=== PATIENT | female | born 1975 | race Caucasian/White ===

== ENCOUNTER 2018-09-16 00:12 | Emergency (ER) | payer OTHER, SELFPAY ==
--- OUTSIDE RECORDS SUMMARY | 2018-09-16 00:15 | XMS REPORT ---
:1975 Author Organization [facility] Address [address] [place] [address] Dr. [address] [place] [address] Care Team Providers Name Role Phone DR NAA RUIZ Unavailable Unavailable Problems This patient has no known problems. Allergies, Adverse Reactions, Alerts This patient has no known allergies or adverse reactions. Medications This patient has no known medications. Encounters Start End Encounter Admission Attending Care Care Encounter Date/Time Date/Time Type Type Clinicians Facility Department ID 2018-04-05 2018-04-05 Outpatient Deborah RUIZ [facility] [id number] 04:41:00 08:30:00 NAA 2017-10-11 2017-10-11 Outpatient Deborah RUIZ [facility] [id number] 05:44:00 11:43:00 NAA Results Test Description Test Time Test Comments Text Results Atomic Results Result Comments URINE MONOCLONALFB 2018-04-05 06:15:00 Test Item Value Reference Range Comments PREG UR (test code=PGU) NEGATIVE NEGATIVE URINE MONOCLONALFB2017-10-11 06:38:00 Test Item Value Reference Range Comments PREG UR (test code=PGU) NEGATIVE NEGATIVE
[2018-09-16 01:28] LABS: Absolute Lymphocytes (CBC) 4.4 K/uL (0.7-4.9); Absolute Monocytes 0.9 K/uL (0.1-1.3); Absolute Neutrophil 6.3 K/uL (1.8-8.0); Basophils % 0.6 % (0-1.3); Eosinophils % 2.1 % (0-4.4); Hematocrit 35.2 % (36.0-45.0); Lymphocytes % 36.7 % (15.3-44.8); MPV 8.2 fL (7.6-11.3); Monocytes % 7.5 % (3.3-12.3); RBC Red Blood Cell Count 5.07 M/uL (3.86-4.86)
[2018-09-16 01:31] LABS: Protime INR 0.97
[2018-09-16 01:48] LABS: ALT/SGPT 25 U/L (12-78); AST/SGOT 17 U/L (15-37); Albumin 3.4 g/dL (3.4-5.0); Alkaline Phosphatase 144 U/L (45-117); BUN Blood Urea Nitrogen 8 mg/dL (7-18); Bicarbonate 28 mmol/L (21-32); Bilirubin Direct < 0.1 mg/dL (0-0.2); Bilirubin Total 0.1 mg/dL (0.2-1.0); Glucose Level 144 mg/dL (74-106); Magnesium 2.2 mg/dL (1.8-2.4); NT PRO-BNP 8 pg/mL (<125); Potassium 4.1 mmol/L (3.5-5.1); Protein, Total 7.9 g/dL (6.4-8.2); Sodium Level 140 mmol/L (136-145); Troponin (Emerg Dept Use Only) < 0.02 ng/mL (0.0-0.045)
--- NOTE | 2018-09-16 02:20 | ER ---
Nurse's Notes [facility] Name: Enedina Hodge Age: 43 yrs Sex: Female : 1975 Arrival Date: 09/16/2018 Time: 00:19 Bed 20 Private MD: Diagnosis: Chest pain, unspecified Presentation: 09/16 00:38 Presenting complaint: Patient states: intermittent chest pains x 5 days and feels like tl2 heart "skips a beat". Pain goes through to back and radiates up neck. Denies nausea, vomiting, or shortness of breath. Reports headache. Transition of care: patient was not received from another setting of care. Onset of symptoms was September 11, 2018. Risk Assessment: Do you want to hurt yourself or someone else? Patient reports no desire to harm self or others. Initial Sepsis Screen: Does the patient meet any 2 criteria? No. Patient's initial sepsis screen is negative. Does the patient have a suspected source of infection? No. Patient's initial sepsis screen is negative. Care prior to arrival: None. 00:38 Method Of Arrival: Ambulatory tl2 00:38 Acuity: GATO 3 tl2 Triage Assessment: 00:41 General: Appears in no apparent distress. uncomfortable, Behavior is calm, cooperative, tl2 appropriate for age. Pain: Complains of pain in anterior aspect of left upper chest Pain radiates to left scapular area Pain currently is 0 out of 10 on a pain scale. at worst was 5 out of 10 on a pain scale. Aggravated by increased activity. Neuro: Level of Consciousness is awake, alert, obeys commands, Oriented to person, place, time, situation. Cardiovascular: Chest pain is described as mild, quality is sharp, is located in left chest wall episodes are intermittent. Cardiovascular: Patient's skin is warm and dry. Rhythm is sinus rhythm. Respiratory: Airway is patent Respiratory effort is even, unlabored, Respiratory pattern is regular, symmetrical, Denies shortness of breath. GI: No signs and/or symptoms were reported involving the gastrointestinal system. Patient currently denies nausea, vomiting. : No signs and/or symptoms were reported regarding the genitourinary system. Derm: Skin is pink, warm \\T\\ dry. Historical: - Allergies: 00:41 Codeine (Vomiting); tl2 00:41 Morphine (Vomiting); tl2 00:41 Tramadol HCl (Vomiting); tl2 00:41 Hydrocodone-Acetaminophen; tl2 00:41 skalaxin; tl2 - Home Meds: 00:41 Omeprazole Oral [Active]; tl2 - PMHx: 00:41 Gastric Reflux; stress induced hypertension; tl2 - PSHx: 00:41 right and left foot; tl2 - Immunization history:: Adult Immunizations up to date. - Social history:: Smoking status: Patient uses tobacco products, smokes one-half pack cigarettes per day. - Ebola Screening: : No symptoms or risks identified at this time. Screenin:44 Abuse screen: Denies threats or abuse. Nutritional screening: No deficits noted. tl2 Tuberculosis screening: No symptoms or risk factors identified. Fall Risk None identified. Assessment: 00:45 Pain: Pain began 5 days ago. tl2 01:28 Reassessment: Patient appears in no apparent distress at this time. Patient and/or tl2 family updated on plan of care and expected duration. Pain level reassessed. Patient is alert, oriented x 3, equal unlabored respirations, skin warm/dry/pink. awaiting lab results. 02:29 Reassessment: Patient appears in no apparent distress at this time. Patient and/or tl2 family updated on plan of care and expected duration. Pain level reassessed. Patient is alert, oriented x 3, equal unlabored respirations, skin warm/dry/pink. Patient states feeling better. 02:44 Reassessment: Patient appears in no apparent distress at this time. pt verbalized tl2 understanding of discharge instructions, and need for follow up. Vital Signs: 00:41 BP 127 / 65; Pulse 86; Resp 18; Temp 98(O); Pulse Ox 98% on R/A; Weight 90.72 kg; tl2 Height 5 ft. 5 in. (165.10 cm); Pain 0/10; 01:28 BP 118 / 92; Pulse 83; Resp 21; Pulse Ox 100% on R/A; tl2 02:29 BP 101 / 65; Pulse 83; Resp 20; Pulse Ox 97% on R/A; tl2 00:41 Body Mass Index 33.28 (90.72 kg, 165.10 cm) tl2 ED Course: 00:19 Patient arrived in ED. es 00:22 Hair Curtis PA is PHCP. jr8 00:22 Wei Garcia MD is Attending Physician. jr8 00:39 Triage completed. tl2 00:41 Arm band placed on right wrist. tl2 00:44 Patient has correct armband on for positive identification. Bed in low position. Call tl2 light in reach. Side rails up X 1. residential monitor on. Pulse ox on. NIBP on. 00:44 Patient maintains SpO2 saturation greater than 95% on room air. tl2 00:46 Zoey Sullivan, NELLY is Primary Nurse. tl2 01:09 X-ray completed. Portable x-ray completed in exam room. Patient tolerated procedure kw well. 01:09 XRAY Chest (1 view) In Process Unspecified. EDMS 01:19 Inserted saline lock: 20 gauge in right antecubital area, using aseptic technique. lt1 02:44 No provider procedures requiring assistance completed. IV discontinued, intact, tl2 bleeding controlled, No redness/swelling at site. Pressure dressing applied. Administered Medications: No medications were administered Outcome: 02:19 Discharge ordered by . jr8 02:44 Discharged to home ambulatory. tl2 02:44 Condition: stable 02:44 Discharge instructions given to patient, Instructed on discharge instructions, follow up and referral plans. Demonstrated understanding of instructions, follow-up care. 02:46 Patient left the ED. tl2 Signatures: Dispatcher [employer] Julieta Bauer Kimberlee kw Roszak, Josh, PA PA jr8 Zoey Sullivan RN RN tl2 Cassie Otero lt1
--- NOTE | 2018-09-16 02:20 | EDPHYS ---
Physician Documentation [facility] Name: Enedina Hodge Age: 43 yrs Sex: Female : 1975 Arrival Date: 09/16/2018 Time: 00:19 Bed 20 Private MD: ED Physician Wei Garcia HPI: 09/16 01:16 This 43 yrs old Female presents to ER via Ambulatory with complaints of Chest jr8 Pain. 01:16 The patient or guardian reports chest pain that is located primarily in the substernal jr8 area. Onset: gradually, 5 day(s) ago. The pain radiates to the left shoulder. Associated signs and symptoms: Pertinent positives: dizziness. The chest pain is described as sharp, squeezing, stabbing. Duration: The patient or guardian reports multiple episodes, that are intermittent, that wax and wane. Modifying factors: The symptoms are alleviated by rest, the symptoms are aggravated by emotionally stressful situations. Severity of pain: At its worst the pain was moderate in the emergency department the pain has resolved. The patient has experienced similar episodes in the past, several times. The patient has not recently seen a physician. Patient stated that she has longstanding history of chest pain on/off with exertion and from her heart skipping beats. Has seen cardiology in past and had multiple labs and diagnostics run. No VT or atherosclerotic changes then. Stated that it was from emotional response and stress. Came to ED today because she has never had this long of chest pain before . Historical: - Allergies: 00:41 Codeine (Vomiting); tl2 00:41 Morphine (Vomiting); tl2 00:41 Tramadol HCl (Vomiting); tl2 00:41 Hydrocodone-Acetaminophen; tl2 00:41 skalaxin; tl2 - Home Meds: 00:41 Omeprazole Oral [Active]; tl2 - PMHx: 00:41 Gastric Reflux; stress induced hypertension; tl2 - PSHx: 00:41 right and left foot; tl2 - Immunization history:: Adult Immunizations up to date. - Social history:: Smoking status: Patient uses tobacco products, smokes one-half pack cigarettes per day. - Ebola Screening: : No symptoms or risks identified at this time. ROS: 01:16 Eyes: Negative for injury, pain, redness, and discharge, ENT: Negative for injury, jr8 pain, and discharge, Neck: Negative for injury, pain, and swelling, Respiratory: Negative for shortness of breath, cough, wheezing, and pleuritic chest pain, Abdomen/GI: Negative for abdominal pain, nausea, vomiting, diarrhea, and constipation, Back: Negative for injury and pain, MS/Extremity: Negative for injury and deformity, Skin: Negative for injury, rash, and discoloration, Neuro: Negative for headache, weakness, numbness, tingling, and seizure. 01:16 Cardiovascular: Positive for chest pain, Negative for edema, orthopnea, palpitations, paroxysmal nocturnal dyspnea. Exam: :16 Eyes: Pupils equal round and reactive to light, extra-ocular motions intact. Lids and jr8 lashes normal. Conjunctiva and sclera are non-icteric and not injected. Cornea within normal limits. Periorbital areas with no swelling, redness, or edema. ENT: Nares patent. No nasal discharge, no septal abnormalities noted. Tympanic membranes are normal and external auditory canals are clear. Oropharynx with no redness, swelling, or masses, exudates, or evidence of obstruction, uvula midline. Mucous membranes moist. Neck: Trachea midline, no thyromegaly or masses palpated, and no cervical lymphadenopathy. Supple, full range of motion without nuchal rigidity, or vertebral point tenderness. No Meningismus. Chest/axilla: Normal chest wall appearance and motion. Nontender with no deformity. No lesions are appreciated. Cardiovascular: Regular rate and rhythm with a normal S1 and S2. No gallops, murmurs, or rubs. Normal PMI, no JVD. No pulse deficits. Respiratory: Lungs have equal breath sounds bilaterally, clear to auscultation and percussion. No rales, rhonchi or wheezes noted. No increased work of breathing, no retractions or nasal flaring. Abdomen/GI: Soft, non-tender, with normal bowel sounds. No distension or tympany. No guarding or rebound. No evidence of tenderness throughout. Back: No spinal tenderness. No costovertebral tenderness. Full range of motion. Skin: Warm, dry with normal turgor. Normal color with no rashes, no lesions, and no evidence of cellulitis. MS/ Extremity: Pulses equal, no cyanosis. Neurovascular intact. Full, normal range of motion. Neuro: Awake and alert, GCS 15, oriented to person, place, time, and situation. Cranial nerves II-XII grossly intact. Motor strength 5/5 in all extremities. Sensory grossly intact. Cerebellar exam normal. Normal gait. Vital Signs: 00:41 BP 127 / 65; Pulse 86; Resp 18; Temp 98(O); Pulse Ox 98% on R/A; Weight 90.72 kg; tl2 Height 5 ft. 5 in. (165.10 cm); Pain 0/10; 01:28 BP 118 / 92; Pulse 83; Resp 21; Pulse Ox 100% on R/A; tl2 02:29 BP 101 / 65; Pulse 83; Resp 20; Pulse Ox 97% on R/A; tl2 00:41 Body Mass Index 33.28 (90.72 kg, 165.10 cm) tl2 MDM: 00:22 Patient medically screened. jr8 02:19 Data reviewed: vital signs, nurses notes, lab test result(s), EKG, radiologic studies, jr8 plain films. Data interpreted: Pulse oximetry: on room air is 100 %. Interpretation: normal. Counseling: I had a detailed discussion with the patient and/or guardian regarding: the historical points, exam findings, and any diagnostic results supporting the discharge/admit diagnosis, lab results, radiology results, the need for outpatient follow up, a field care advocate, to return to the emergency department if symptoms worsen or persist or if there are any questions or concerns that arise at home. 09/16 00:43 Order name: Basic Metabolic Panel; Complete Time: 09/16 00:43 Order name: CBC with Diff; Complete Time: 09/16 00:43 Order name: LFT's; Complete Time: 09/16 00:43 Order name: Magnesium; Complete Time: :09/16 00:43 Order name: NT PRO-BNP; Complete Time: 09/16 00:43 Order name: PT-INR; Complete Time: 09/16 00:43 Order name: Troponin (emerg Dept Use Only); Complete Time: :09/16 00:43 Order name: XRAY Chest (1 view) 09/16 00:43 Order name: EKG; Complete Time: 00:44 09/16 00:43 Order name: Cardiac monitoring; Complete Time: 00:47 09/16 00:43 Order name: EKG - Nurse/Tech; Complete Time: :09/16 00:43 Order name: IV Saline Lock; Complete Time: :09/16 00:43 Order name: Labs collected and sent; Complete Time: :09/16 00:43 Order name: O2 Per Protocol; Complete Time: :09/16 00:43 Order name: O2 Sat Monitoring; Complete Time: : Administered Medications: No medications were administered Disposition: 03:22 Co-signature as Attending Physician, Wei Garcia MD. Disposition: 09/16/18 02:19 Discharged to Home. Impression: Chest pain, unspecified. - Condition is Stable. - Discharge Instructions: Nonspecific Chest Pain. - Medication Reconciliation Form, Thank You Letter, Antibiotic Education, Prescription Opioid Use form. - Follow up: Private Physician; When: 2 - 3 days; Reason: Recheck today's complaints, Continuance of care, Re-evaluation by your physician. - Problem is new. - Symptoms have improved. Signatures: Dispatcher [employer] EDMS Hair Curtis PA PA jr8 Zoey Sullivan RN RN tl2 Wei Garcia MD MD Corrections: (The following items were deleted from the chart) 02:46 02:19 09/16/2018 02:19 Discharged to Home. Impression: Chest pain, unspecified. tl2 Condition is Stable. Forms are Medication Reconciliation Form, Thank You Letter, Antibiotic Education, Prescription Opioid Use. Follow up: Private Physician; When: 2 - 3 days; Reason: Recheck today's complaints, Continuance of care, Re-evaluation by your physician. Problem is new. Symptoms have improved. jr8
--- NOTE | 2018-09-16 07:37 | EKG ---
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
--- NOTE | 2018-09-16 10:14 | RAD REPORT ---
EXAM DESCRIPTION: RAD - Chest Single View - 09/16/2018 1:09 am CLINICAL HISTORY: CHEST PAIN Chest pain. COMPARISON: Chest Single View dated 05/22/2017 FINDINGS: Portable technique limits examination quality. The lungs are grossly clear. The heart is normal in size. No displaced fractures. IMPRESSION: No acute intrathoracic process suspected.
== END 2018-09-16 02:46 | disposition home or self-care (01) ==
LOC: ER 00:12
DX: R07.9 Chest pain, unspecified (principal); I10 Essential (primary) hypertension; K21.9 Gastro-esophageal reflux disease without esophagitis; Z88.5 Allergy status to narcotic agent; Z88.6 Allergy status to analgesic agent; Z88.8 Allergy status to other drugs, medicaments and biological substances; F17.210 Nicotine dependence, cigarettes, uncomplicated
CPT/HCPCS: 36415; 71045; 80048; 80076; 83735; 83880; 84484; 85025; 85610; 93005; 99284